=== PATIENT | male | born 1960 | race Caucasian/White ===

== ENCOUNTER 2017-12-08 21:43 | Emergency (ER) | payer MEDICAID, SELFPAY ==
[2017-12-08 21:45] VITALS: BP 131/70; PULSE 74; RESP 18; TEMP 36.6; O2SAT 97; BMI 27.3
--- NOTE | 2017-12-08 22:13 | RAD_ITS ---
STUDY: X-RAY - LEFT ANKLE REASON FOR EXAM: Male, 57 years old. Pain with movement minimal swelling TECHNIQUE: 3 view(s) of the ankle. COMPARISON: None. FINDINGS: Normal visualized distal tibia and fibula. There is a well-corticated density distal to the medial malleolus suggesting possible prior injury and or benign soft tissue calcification. Normal medial and lateral malleoli. Normal tibiotalar articulation and ankle mortise. Normal visualized talus and calcaneus. The visualized subtalar, talonavicular, calcaneocuboid and tarsal articulations are normal. There are vascular calcifications. RAD/Ankle min 3 Views IMPRESSION: No visualized acute fracture. Electronically Signed: Shirley Deras MD at 23:17 EDT Tel , Service support ,
--- NOTE | 2017-12-08 23:09 | ED.DCSUM_ITS ---
- ER Visit Summary Date of Service: 12/08/17 Chief Complaint: Left ankle pain History of Present Illness: The patient is a 57 M with no primary care physician. He reports that 6 days ago he was playing basketball in cheap shoes from [email or web address]. He reports that he jumped came down and had the abrupt onset of pain in the medial side of his left ankle. He states that he did not twist it. He reports that he continues to have an aching pain that is 5 out of 10 when he twisted his leg to the left. He has no pain at rest. He is not taking anything for pain. Physical Examination: Vitals: Stable. Afebrile. General: Well-nourished and well-developed. Head: Normocephalic atraumatic. Neck: Supple, no lymphadenopathy. No JVD. Nontender. Cardiovascular: Regular rate and rhythm. No murmurs. Respiratory: No respiratory distress. Clear to auscultation bilaterally. Abdominal: Soft, nontender, nondistended, normal bowel sounds. No guarding, rebound, or peritoneal signs. Back: Nontender. Extremities: Mild tenderness palpation to left medial malleolus. No soft tissue swelling. No pain over the lateral malleolus. No pain over the base of the fifth metatarsal. No pain over the proximal fibula. Is a 2+ dorsalis pedis pulse. He is neurovascular intact distally. Skin: Normal color, no rash. Neurologic: Alert and oriented ?3. Cranial nerves II through XII are intact. Normal strength and sensation. Psych: Normal affect. Test Results: X-ray is negative. Emergency Department Course and Treatment: Patient refused pain medications. He is resting comfortably. Treatment Plan: Patient will be discharged instructions to rest, ice, use a compressive dressing and elevate. Follow-up with Dr. Jane in 1 week if not improving. Disposition: To home in improved and stable condition. Impression: 1. Left ankle sprain. This note was generated with [employer] dictation software. It may contain incorrect words, spelling, and punctuation that were not noted in review of the chart prior to signing ED Disposition - Plan for ED Patient: Disposition: Home or Assisted Living Chief Complaint: Lower Extremity Injury Instructions: ED Sprain Ankle W X Ray Referrals: Tyler Jane DPM [STAFF PHYSICIAN] - 1 Week if not improving
== END 2017-12-08 23:27 | disposition home or self-care (01) ==
LOC: ED 22:50
PROVIDERS: Emergency Provider Emergency Medicine
DX: S93.402A Sprain of unspecified ligament of left ankle, initial encounter (principal); W17.89XA Other fall from one level to another, initial encounter; Y93.67 Activity, basketball; Y92.310 Basketball court as the place of occurrence of the external cause; Y99.8 Other external cause status
CPT/HCPCS: 73610; 99282